=== PATIENT | female | born 1965 | race Caucasian/White ===

== ENCOUNTER 2017-10-01 19:25 | Emergency (ER) | payer MEDICARE, MEDICAID, OTHER | END 2017-10-01 20:43 | disposition home or self-care (01) | LOC: E/R 19:25 | DX: J20.9 Acute bronchitis, unspecified (principal); J45.909 Unspecified asthma, uncomplicated | CPT/HCPCS: 99284 ==

== ENCOUNTER 2017-10-06 20:09 | Emergency (ER) | payer MEDICARE, MEDICAID ==
[2017-10-06] MEDS: DEXAMETHASONE 10 MG/ML 1 ML INJ IV (21:21)
[2017-10-06] MEDS: SOD CHLORIDE 0.9% 500 ML IV (21:31)
[2017-10-06] MEDS: ALBUTEROL 0.083% (NEB) 2.5 MG/3 ML AMP NEB (21:34)
[2017-10-06] MEDS: IPRATROPIUM (NEB) 0.5 MG/2.5 ML AMP NEB (21:34)
[2017-10-06] MEDS: ALBUTEROL 0.083% (NEB) 2.5 MG/3 ML AMP HHN (23:56)
[2017-10-06] MEDS: IPRATROPIUM (NEB) 0.5 MG/2.5 ML AMP HHN (23:56)
== END 2017-10-07 00:32 | disposition home or self-care (01) ==
LOC: FTE 10-07 00:32
DX: J45.901 Unspecified asthma with (acute) exacerbation (principal); I10 Essential (primary) hypertension; Z87.891 Personal history of nicotine dependence
CPT/HCPCS: 71045; 87400; 94640; 94664; 96374; 99284-25